=== PATIENT | female | born 2005 | race African-American/Black ===

== ENCOUNTER 2024-03-22 15:44 | Outpatient (CLI) | payer MEDICAID | END 2024-03-22 15:45 | disposition home or self-care (01) | LOC: BICULT 15:44 | PROVIDERS: ATTEND Advanced Practice Midwife | DX: Z34.92 Encounter for supervision of normal pregnancy, unspecified, second trimester (principal); Z3A.28 28 weeks gestation of pregnancy | CPT/HCPCS: 76805 ==